=== PATIENT | male | born 1940 | race Caucasian/White ===

== ENCOUNTER → 2023-09-07 06:42 | Day surgery (SDC) | payer MEDICARE, OTHER, SELFPAY | LOC: GI 06:42 | PROVIDERS: ATTENDING PHYSICIAN Internal Medicine Gastroenterology | DX: K22.89 Other specified disease of esophagus (principal); K44.9 Diaphragmatic hernia without obstruction or gangrene; R12 Heartburn | CPT/HCPCS: 43239; 88305 ==

== ENCOUNTER → 2024-01-21 13:02 | Outpatient (REF) | payer MEDICARE, OTHER, SELFPAY | LOC: RCS 13:02 | PROVIDERS: ATTENDING PHYSICIAN Internal Medicine Cardiovascular Disease; FAMILY PHYSICIAN Family Medicine | DX: I25.10 Atherosclerotic heart disease of native coronary artery without angina pectoris (principal) | CPT/HCPCS: 93306 ==

== ENCOUNTER → 2024-04-11 09:48 | Outpatient (REF) | payer MEDICARE, OTHER, SELFPAY | LOC: RCS 09:48 | PROVIDERS: ATTENDING PHYSICIAN Internal Medicine Cardiovascular Disease; FAMILY PHYSICIAN Family Medicine | DX: I25.10 Atherosclerotic heart disease of native coronary artery without angina pectoris (principal) | CPT/HCPCS: 93017; 93350 ==